=== PATIENT | female | born 1990 | race Caucasian/White ===

== ENCOUNTER → 2018-11-19 | Emergency (ER) | payer BC ==
[~2018-11-19] VITALS: Ht 167.6 cm; Wt 113.4 kg
== END | disposition home or self-care (01) ==
LOC: ER 16:12
DX: L56.8 Other specified acute skin changes due to ultraviolet radiation (principal); X32.XXXA Exposure to sunlight, initial encounter; Y93.89 Activity, other specified; Y92.89 Other specified places as the place of occurrence of the external cause; Y99.8 Other external cause status